=== PATIENT | female | born 1975 | race Two or more races ===

== ENCOUNTER 2021-09-17 17:11 | Emergency (ER) | payer MEDICAID ==
[~2021-09-17] VITALS: Ht 165.1 cm; Wt 90.7 kg
--- NOTE | 2021-09-17 17:30 | NUR ---
To ER bed 2, c/o "Pains on/off >left chest x5d", aaox3, breathing even and non labored, connected to monitor, awaiting md orders
[2021-09-17 18:22] LABS: BASOPHILS # (AUTO) 0.1 K/uL (0.0-0.2); EOSINOPHILS % (AUTO) 0.8 % (0.0-6.0); HEMATOCRIT 39 % (33-45); LYMPHOCYTES # (AUTO) 3.2 K/uL (0.8-4.8); LYMPHOCYTES % (AUTO) 36.1 % (20.0-44.0); MEAN CORPUSCULAR HGB CONC 34 g/dl (31.0-36.0); MEAN CORPUSCULAR VOLUME 90 fL (82-100); MONOCYTES # (AUTO) 0.5 K/uL (0.1-1.30); MONOCYTES % (AUTO) 5.7 % (2.0-12.0); NEUTROPHILS % (AUTO) 56.4 % (43.0-81.0); PLATELET COUNT (AUTO) 360 K/uL (150-450); RED BLOOD CELL COUNT(AUTO) 4.31 MIL/uL (4.0-5.2); WHITE BLOOD COUNT (AUTO) 8.8 K/uL (4.3-11.0)
[2021-09-17 18:44] LABS: CALCIUM, SERUM 8.6 mg/dL (8.5-10.1); CREATININE 0.7 mg/dL (0.6-1.3); POTASSIUM 4.2 mmol/L (3.5-5.1)
[2021-09-17] MEDS ORDERED: METH-647 PO (19:01)
[2021-09-17] MEDS ORDERED: IBUP-1957 PO (19:01)
--- NOTE | 2021-09-17 19:12 | NUR ---
Patient discharged to home in stable condition. Written and verbal after care instructions given. Patient verbalizes understanding of instruction.
--- NOTE | 2021-09-17 19:12 | NUR ---
IV CANNULA REMOVED
[2021-09-17 19:13] VITALS: BP 134/63
== END 2021-09-17 19:28 | disposition home or self-care (01) ==
LOC: ER 17:15
DX: M62.830 Muscle spasm of back (principal); F31.9 Bipolar disorder, unspecified; F41.9 Anxiety disorder, unspecified
CPT/HCPCS: 36415; 71045-TC; 80048-TC; 85025-TC

== ENCOUNTER 2023-08-29 16:06 | Emergency (ER) | payer MEDICAID, OTHER ==
[~2023-08-29] VITALS: Ht 165.1 cm; Wt 99.8 kg
[~2023-08-29 16:06] MED LIST: IBUP-1957 PO; METH-647 PO
[2023-08-29] MEDS ORDERED: CYCLOBENZAPRINE 10 MG TABLET ONE (17:55)
[2023-08-29] MEDS ORDERED: ACETAMINOPHEN ES 500 MG TABLET ONE (17:55)
[2023-08-29] MEDS ORDERED: IBUPROFEN 600 MG TABLET ONE (17:56)
[2023-08-29] MEDS: ACETAMINOPHEN ES 500 MG TABLET PO ONE (18:03)
[2023-08-29] MEDS: CYCLOBENZAPRINE 10 MG TABLET PO ONE (18:03)
[2023-08-29] MEDS: IBUPROFEN 600 MG TABLET PO ONE (18:03)
[2023-08-29] MEDS ORDERED: ACET-2605 PO (18:18)
[2023-08-29] MEDS ORDERED: CYCL5TAB PO (18:18)
[2023-08-29] MEDS ORDERED: IBUP-1955 PO (18:18)
[2023-08-29 18:30] VITALS: BP 140/83; TEMP 98.2; O2SAT 100
== END 2023-08-29 18:30 | disposition home or self-care (01) ==
LOC: ER 16:06
DX: M25.512 Pain in left shoulder (principal); F31.9 Bipolar disorder, unspecified; Z79.899 Other long term (current) drug therapy